=== PATIENT | male | born 1960 | race Caucasian/White ===

== ENCOUNTER → 2021-01-24 | Outpatient (CLI) | payer BC | LOC: WOUNDCARE 09:29 | PROVIDERS: ATTEND Surgery | DX: G60.9 Hereditary and idiopathic neuropathy, unspecified (principal); L97.522 Non-pressure chronic ulcer of other part of left foot with fat layer exposed | CPT/HCPCS: 11042; A6197; G0463 ==

== ENCOUNTER → 2021-01-24 | Outpatient (CLI) | payer BC ==
[2021-01-24 12:34] LABS: BASOPHILS # (AUTO) 0.1 10^3/uL (0.0-0.1); BASOPHILS % (AUTO) 1 % (0-10); EOSINOPHILS # (AUTO) 0.1 10^3/uL (0.0-0.3); EOSINOPHILS % (AUTO) 2 % (0-10); HEMATOCRIT 53 % (40-54); LYMPHOCYTES # (AUTO) 0.9 10^3/uL (1.0-4.0); LYMPHOCYTES % (AUTO) 13 % (12-44); MEAN CORPUSCULAR HEMOGLOBIN 29 pg (25-34); MEAN CORPUSCULAR HGB CONC 34 g/dL (32-36); MEAN CORPUSCULAR VOLUME 85 fL (80-99); MEAN PLATELET VOLUME 9.9 fL (9.0-12.2); MONOCYTES # (AUTO) 0.6 10^3/uL (0.0-1.0); MONOCYTES % (AUTO) 8 % (0-12); NEUTROPHILS # (AUTO) 5.1 10^3/uL (1.8-7.8); NEUTROPHILS % (AUTO) 76 % (42-75); PLATELET COUNT 241 10^3/uL (130-400); WHITE BLOOD COUNT 6.8 10^3/uL (4.3-11.0)
[2021-01-24 12:42] LABS: ALBUMIN 4.3 GM/DL (3.2-4.5); CHLORIDE 105 MMOL/L (98-107); POTASSIUM 4.3 MMOL/L (3.6-5.0); SODIUM 139 MMOL/L (135-145)
[2021-01-24 12:43] LABS: CALCIUM 8.7 MG/DL (8.5-10.1)
[2021-01-24 12:44] LABS: GLUCOSE 102 MG/DL (70-105)
[2021-01-24 12:46] LABS: BILIRUBIN,TOTAL 1.1 MG/DL (0.1-1.0); CARBON DIOXIDE 24 MMOL/L (21-32)
[2021-01-24 12:48] LABS: ALKALINE PHOSPHATASE 59 U/L (40-136); CREATININE SERUM 1.18 MG/DL (0.60-1.30); GFR ESTIMATED > 60
[2021-01-24 12:49] LABS: BUN/CREATININE RATIO 14
[2021-01-24 12:51] LABS: ALANINE AMINOTRANSFERASE 38 U/L (0-55)
--- NOTE | 2021-01-24 13:06 | Diagnostic Imaging Report ---
INDICATION: Chronic pressure ulcer. 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 Osteoarthritis is present at the 1st metatarsal-phalangeal joint. There is no evidence of acute fracture or malalignment. There is no evidence of periosteal reaction or bone destruction to indicate a site of osteomyelitis. Degenerative changes are also seen in the tarsal bones with prominent plantar calcaneal enthesophyte and plantar fascial calcification. IMPRESSION: Presumed chronic findings as described without evidence of acute bone destruction or periosteal reaction to indicate active osteomyelitis. Dictated by: Dictated on workstation # [id number]
[2021-01-24 13:52] LABS: ERYTHROCYTE SEDIMENTATION RATE 1 MM/HR (0-30)
== END ==
LOC: RAD 12:02
PROVIDERS: ATTEND Surgery
DX: L97.522 Non-pressure chronic ulcer of other part of left foot with fat layer exposed (principal); G60.9 Hereditary and idiopathic neuropathy, unspecified
CPT/HCPCS: 36415; 73630; 80053; 85025; 85652; 86141

== ENCOUNTER → 2021-02-08 | Outpatient (CLI) | payer BC | LOC: WOUNDCARE 08:10 | PROVIDERS: ATTEND Surgery | DX: G60.9 Hereditary and idiopathic neuropathy, unspecified (principal); L97.522 Non-pressure chronic ulcer of other part of left foot with fat layer exposed; I96 Gangrene, not elsewhere classified | CPT/HCPCS: 11042; G0463 ==

== ENCOUNTER → 2021-02-15 | Outpatient (CLI) | payer BC | LOC: WOUNDCARE 08:07 | PROVIDERS: ATTEND Surgery | DX: G60.9 Hereditary and idiopathic neuropathy, unspecified (principal); L97.522 Non-pressure chronic ulcer of other part of left foot with fat layer exposed | CPT/HCPCS: 99212 ==

== ENCOUNTER 2021-05-20 00:26 | Emergency (ER) | payer BC ==
[~2021-05-20] VITALS: Ht 200 cm; Wt 136.4 kg
[2021-05-20 01:31] LABS: BASOPHILS # (AUTO) 0.1 10^3/uL (0.0-0.1); BASOPHILS % (AUTO) 0 % (0-10); EOSINOPHILS % (AUTO) 0 % (0-10); HEMATOCRIT 53 % (40-54); HEMOGLOBIN 17.7 g/dL (13.3-17.7); LYMPHOCYTES % (AUTO) 16 % (12-44); MEAN CORPUSCULAR HEMOGLOBIN 29 pg (25-34); MEAN CORPUSCULAR HGB CONC 34 g/dL (32-36); MEAN CORPUSCULAR VOLUME 86 fL (80-99); MEAN PLATELET VOLUME 9.5 fL (9.0-12.2); MONOCYTES # (AUTO) 1.1 10^3/uL (0.0-1.0); MONOCYTES % (AUTO) 9 % (0-12); NEUTROPHILS # (AUTO) 9.1 10^3/uL (1.8-7.8); NEUTROPHILS % (AUTO) 73 % (42-75); PLATELET COUNT 314 10^3/uL (130-400); WHITE BLOOD COUNT 12.5 10^3/uL (4.3-11.0)
[2021-05-20 01:36] LABS: CHLORIDE 103 MMOL/L (98-107); POTASSIUM 3.8 MMOL/L (3.6-5.0); SODIUM 136 MMOL/L (135-145)
[2021-05-20 01:38] LABS: GLUCOSE 145 MG/DL (70-105)
[2021-05-20 01:39] LABS: CARBON DIOXIDE 21 MMOL/L (21-32)
[2021-05-20 01:42] LABS: CREATININE SERUM 1.38 MG/DL (0.60-1.30); GFR ESTIMATED 52
[2021-05-20 01:43] LABS: BUN/CREATININE RATIO 17
[2021-05-20 01:44] LABS: CREATINE KINASE 56 U/L (30-200)
[2021-05-20 01:50] LABS: CREATINE KINASE MB 3.1 NG/ML (<6.6)
--- NOTE | 2021-05-20 04:27 | ED Chest Pain ---
General Chief Complaint: Chest Pain Stated Complaint: CP,HEART RACING,SOB Nursing Triage Note: ASSISTED PT VIA ER W/C TO ROOM #7 W/CO CHEST DISCOMFORT AND DIZZINESS. PT REPORTS AT 2200 HE TOOK A 250MG THC GUMMY D/T RECENT INABILITY TO SLEEP. REPORTS AT 2300 HE AWOKE WITH MEDIAL CHEST DISCOMFORT RADIATING TO L ARM DESCRIBED "PRESSURE." ACCOMPANIED BY . Source: patient Exam Limitations: no limitations History of Present Illness Date Seen by Provider: May 20, 2021 Time Seen by Provider: 00:30 Initial Comments Patient is a 61-year-old male who presents to the emergency department tonight with a chief complaint of chest discomfort and dizziness. Patient states that he was unable to sleep tonight and took a THC gummy that he thought might help him sleep. He states that at 11:00 he woke up and had this chest discomfort that radiated from the right side of his chest across to the left arm. He felt like it was a "pressure". He complains of dizziness. He complains of a little nausea and shortness of breath. Patient states that he was not diaphoretic. He has no history of previous coronary artery disease, stress test or angiograms. He does have a history of hypertension and obstructive sleep apnea. Patient states that he has struggled quite a bit with sleep apnea. At the time of my evaluation he is quite comfortable rating his pain at a "2 or 3". He states that it at its worst it was a "8". The patient had never taken a THC gummy p rior to this evening. Patient is not diabetic. No recent illnesses such as fevers, chills cough or congestion or URI symptoms or Covid concerns. All other review of systems reviewed and negative except as stated above. Timing/Duration: 1 hour Severity/Quality: moderate Location: central (To right sided) Radiation: shoulders (Left shoulder) Activities at Onset: none Prior CP/Workup: no prior chest pain, no prior cardiac workup ASA po MANNEQUIN SANDER AND FINISHER: No NTG SL MANNEQUIN SANDER AND FINISHER: No Associated Symptoms: nausea/vomiting Allergies and Home Medications Patient Home Medication List Home Medication List Reviewed: Yes Review of Systems Review of Systems Constitutional: see HPI EENTM: No Symptoms Reported Respiratory: Shortness of Air Cardiovascular: Chest Pain Gastrointestinal: Nausea Genitourinary: No Symptoms Reported Skin: no symptoms reported Psychiatric/Neurological: Other (Dizziness) All Other Systems Reviewed Negative Unless Noted: Yes Physical Exam Vital Signs Vital Signs - First Documented 05/20/21 00:36 Temp 35.4 Pulse 97 Resp 18 B/P (MAP) 156/91 (112) Pulse Ox 96 O2 Delivery Room Air Capillary Refill : Less Than 3 Seconds Height, Weight, BMI Height: '" Weight: lbs. oz. kg; 34.00 BMI Method: General Appearance: No Apparent Distress, WD/WN HEENT: PERRL/EOMI Neck: Full Range of Motion, Normal Inspection Respiratory: Chest Non Tender, Lungs Clear, Normal Breath Sounds, No Accessory Muscle Use, No Respiratory Distress Cardiovascular: Regular Rate, Rhythm, Normal Peripheral Pulses Gastrointestinal: Non Tender, Soft Extremity: Normal Capillary Refill, Normal Inspection, Normal Range of Motion, Non Tender, No Calf Tenderness Neurologic/Psychiatric: Alert, Oriented x3, No Motor/Sensory Deficits, Normal Mood/Affect Skin: Normal Color, Warm/Dry Progress/Results/Core Measures Results/Orders Lab Results Laboratory Tests Test 05/20/21 00:45 05/20/21 03:52 Range/Units White Blood Count 12.5 H 4.3-11.0 10^3/uL Red Blood Count 6.12 H 4.30-5.52 10^6/uL Hemoglobin 17.7 13.3-17.7 g/dL Hematocrit 53 40-54 % Mean Corpuscular Volume 86 80-99 fL Mean Corpuscular Hemoglobin 29 25-34 pg Mean Corpuscular Hemoglobin Concent 34 32-36 g/dL Red Cell Distribution Width 13.8 10.0-14.5 % Platelet Count 314 130-400 10^3/uL Mean Platelet Volume 9.5 9.0-12.2 fL Immature Granulocyte % (Auto) 2 % Neutrophils (%) (Auto) 73 42-75 % Lymphocytes (%) (Auto) 16 12-44 % Monocytes (%) (Auto) 9 0-12 % Eosinophils (%) (Auto) 0 0-10 % Basophils (%) (Auto) 0 0-10 % Neutrophils # (Auto) 9.1 H 1.8-7.8 10^3/uL Lymphocytes # (Auto) 2.0 1.0-4.0 10^3/uL Monocytes # (Auto) 1.1 H 0.0-1.0 10^3/uL Eosinophils # (Auto) 0.0 0.0-0.3 10^3/uL Basophils # (Auto) 0.1 0.0-0.1 10^3/uL Immature Granulocyte # (Auto) 0.2 H 0.0-0.1 10^3/uL Sodium Level 136 135-145 MMOL/L Potassium Level 3.8 3.6-5.0 MMOL/L Chloride Level 103 98-107 MMOL/L Carbon Dioxide Level 21 21-32 MMOL/L Anion Gap 12 5-14 MMOL/L Blood Urea Nitrogen 23 H 7-18 MG/DL Creatinine 1.38 H 0.60-1.30 MG/DL Estimat Glomerular Filtration Rate 52 BUN/Creatinine Ratio 17 Glucose Level 145 H 70-105 MG/DL Calcium Level 9.0 8.5-10.1 MG/DL Total Creatine Kinase 56 30-200 U/L Creatine Kinase MB 3.1 <6.6 NG/ML Troponin I < 0.028 < 0.028 <0.028 NG/ML My Orders Orders - KRISTOPHER BANSAL MD Ed Iv/Invasive Line Start (05/20/21 01:27) Cbc With Automated Diff (05/20/21 01:27) Basic Metabolic Panel (05/20/21 01:27) Creatine Kinase (05/20/21 01:27) Creatine Kinase Mb (05/20/21:27) Troponin I (05/20/21 01:27) Ekg Tracing (05/20/21 01:27) Chest 1 View, Ap/Pa Only (05/20/21 01:27) Troponin I (05/20/21 03:03) Vital Signs/I&O 05/20/21 05/20/21 00:36 00:36 Temp 35.4 Pulse 97 Resp 18 B/P (MAP) 156/91 (112) Pulse Ox 96 O2 Delivery Room Air Room Air Blood Pressure Mean: 112 Progress Progress Note : Time: 04:35 Progress Note Patient is resting comfortably throughout his stay here in the ED. No ongoing complaints. 2 sets of cardiac markers were evaluated, both troponins were negative. Patient's vital signs have been stable. He is a little hypoxic with oxygen saturations running at about 90% occasionally dipping to 87 or 88. This is consistent with a history of obstructive sleep apnea. Patient will be discharged home to follow-up with his primary care provider. All questions have been sought and answered. Patient is stable for discharge. Initial ECG Impression Date: May 20, 2021 Initial ECG Impression Time: 00:40 Initial ECG Rate: 94 Initial ECG Rhythm: Normal Sinus Comment Right bundle branch block Diagnostic Imaging Diagonstic Imaging: Xray Plain Films/CT/US/NM/MRI: chest Comments Chest x-ray interpreted by me, no infiltrates or effusions are noted, normal mediastinal structures, normal bony thorax Departure Impression Primary Impression: Chest pain Qualified Codes: R07.9 - Chest pain, unspecified Disposition: HOME, SELF-CARE Condition: Stable Departure-Patient Inst. Decision time for Depature: 04:26 Referrals: CISCO PEREZ DO (PCP/Family) Primary Care Physician Patient Instructions: Chest Pain That Is Not Caused by the Heart (DC) Add. Discharge Instructions: Please follow-up with your primary care provider. Call today for a follow-up appointment next week. Take a baby aspirin daily. Return to the emergency department for any new, concerning or emergent complaints. KRISTOPHER BANSAL MD May 20, 2021 04:27
[2021-05-20 04:31] VITALS: BP 150/90
--- NOTE | 2021-05-20 07:10 | Diagnostic Imaging Report ---
INDICATION: chest pain. TECHNIQUE: Single view chest 1:48 AM. CORRELATION STUDY: None FINDINGS: The heart size, mediastinal configuration and pulmonary vascularity are within normal limits. Bibasilar opacities may be reflective of infiltrate versus atelectasis right slightly greater than left. IMPRESSION: 1. Bibasilar infiltrate versus atelectasis right greater than left. Followup imaging recommended. Dictated by: Dictated on workstation # [id number]
== END 2021-05-20 04:31 | disposition home or self-care (01) ==
LOC: EDUNIT# 00:26 → ER 00:30
DX: R07.9 Chest pain, unspecified (principal); I10 Essential (primary) hypertension
CPT/HCPCS: 36415; 71045; 80048; 82550; 82553; 84484; 85025; 93005

== ENCOUNTER 2021-07-16 17:18 | Inpatient (IN) | payer BC ==
[~2021-07-16] VITALS: Ht 205 cm; Wt 140.3 kg
[2021-07-16 18:12] LABS: BASOPHILS # (AUTO) 0.1 10^3/uL (0.0-0.1); BASOPHILS % (AUTO) 0 % (0-10); EOSINOPHILS % (AUTO) 0 % (0-10); HEMATOCRIT 49 % (40-54); HEMOGLOBIN 16.5 g/dL (13.3-17.7); LYMPHOCYTES # (AUTO) 0.6 10^3/uL (1.0-4.0); LYMPHOCYTES % (AUTO) 3 % (12-44); MEAN CORPUSCULAR HEMOGLOBIN 29 pg (25-34); MEAN CORPUSCULAR HGB CONC 34 g/dL (32-36); MEAN CORPUSCULAR VOLUME 87 fL (80-99); MONOCYTES # (AUTO) 0.9 10^3/uL (0.0-1.0); MONOCYTES % (AUTO) 4 % (0-12); NEUTROPHILS # (AUTO) 22.5 10^3/uL (1.8-7.8); NEUTROPHILS % (AUTO) 92 % (42-75); PLATELET COUNT 213 10^3/uL (130-400); WHITE BLOOD COUNT 24.4 10^3/uL (4.3-11.0)
[2021-07-16 18:24] LABS: ALBUMIN 4.3 GM/DL (3.2-4.5); INR 1.2 (0.8-1.4); POTASSIUM 4.2 MMOL/L (3.6-5.0); PROTHROMBIN TIME PATIENT 15.6 SEC (12.2-14.7)
[2021-07-16 18:26] LABS: CALCIUM 9.1 MG/DL (8.5-10.1)
[2021-07-16 18:27] LABS: TOTAL PROTEIN 6.9 GM/DL (6.4-8.2)
[2021-07-16 18:29] LABS: BILIRUBIN,TOTAL 2.9 MG/DL (0.1-1.0)
[2021-07-16 18:30] LABS: CREATININE SERUM 1.48 MG/DL (0.60-1.30)
[2021-07-16] MEDS ORDERED: NS IV 1000 ML 1,000 ML IV SCH ×3 (18:30→20:30)
[2021-07-16] MEDS ORDERED: ASPIRIN 81 MG CHEW (CHILDREN'S ASA) PO ONE (18:30)
[2021-07-16 18:33] LABS: MAGNESIUM 1.4 MG/DL (1.6-2.4)
[2021-07-16 18:43] LABS: MONOCYTES % (MANUAL) 4 %; NEUTROPHILS % (MANUAL) 96 %; RBC MORPH NORMAL
--- NOTE | 2021-07-16 18:52 | Diagnostic Imaging Report ---
INDICATION: Chest pain. TECHNIQUE: Single view chest 6:25 PM. CORRELATION STUDY: 05/20/2021. FINDINGS: Heart size is mildly enlarged. Prominent appearance about the central pulmonary arteries. Minimal areas of atelectasis suggested about the lung bases. No definitive consolidating infiltrate. IMPRESSION: Cardiac enlargement without failure, stable. Likely minimal basilar areas of atelectasis. No infiltrate. Dictated by: Dictated on workstation # [id number]
[2021-07-16] MEDS ORDERED: LABETALOL HCL 20 MG/4 ML VIAL IV ONE (19:00)
--- NOTE | 2021-07-16 19:09 | ED Chest Pain ---
General Chief Complaint: Trauma-Non Activation Stated Complaint: CP,YOUNG,FEVER Nursing Triage Note: ARRIVED VIA AMB TO ROOM 05. STATES HE HAS A HEADACHE, FEVER, CHEST PAIN THIS AM, AND BLACKED OUT DRIVING HIS SPRAYER AND HIT HIS SHEAD AT 11AM TODAY. DENIES PAIN FROM THIS INCIDENT. (BERLIN IVORY) History of Present Illness Date Seen by Provider: Jul 16, 2021 Time Seen by Provider: 18:05 Initial Comments 61-year-old male presents for syncopal episodes that have been occurring over the last 2 years. He reports 3 episodes since 9:00 this morning, one at 11:00 am while driving a tractor/sprayer and running into the barn. No head injury and he usually awakens after hearing beeping on his tractor. He did not have any head injuries. He also began having upper back pain that started at midnight. He has not been seen by a senior software qa analyst and has a history of hypertension but no history of CAD. He is not diabetic. He denies any chest pain presently but had some about 0900 today, nausea or diaphoresis. No history of smoking. He takes Amlodipine/Benazepril 5/40 mg daily for HTN. No known COVID exposure, he received his first vaccine 2 weeks ago. Will get his second vaccine in a week. He has been prescribed CPAP but uses it very rarely. He does not sleep well and has thought the syncopal episodes are related to being tired. He was seen in this ED in April for Chest pain and had a negative ED work up. Timing/Duration: 24 hours Severity/Quality: mild Location: back Radiation: no radiation Prior CP/Workup: non-cardiac ASA po CONSERVATION ENGINEER: No NTG SL CONSERVATION ENGINEER: No Associated Symptoms: No nausea/vomiting, No shortness of breath; syncope; No weakness (BERLIN IVORY) Allergies and Home Medications Allergies Coded Allergies: No Known Drug Allergies (Unverified , 07/16/21) Home Medications Amlodipine Besylate/Benazepril 1 Each Capsule, 1 EACH PO DAILY, (Reported) Last Action: Reviewed Duloxetine HCl 60 Mg Capsule., 60 MG PO DAILY, (Reported) Last Action: Reviewed Meloxicam 15 Mg Tablet, 15 MG PO DAILY, (Reported) Last Action: Reviewed Omeprazole 40 Mg Capsule., 40 MG PO DAILY, (Reported) Last Action: Reviewed Tramadol HCl 50 Mg Tablet, 50 MG PO Q6H PRN for PAIN-MODERATE (5-7), (Reported) Last Action: Reviewed Patient Home Medication List Home Medication List Reviewed: Yes (BERLIN IVORY) Review of Systems Review of Systems Constitutional: no symptoms reported, see HPI Cardiovascular: See HPI; Denies Chest Pain (None presently.), Denies Edema; Lightheadedness, Syncope Gastrointestinal: No Symptoms Reported, See HPI; Denies Nausea (BERLIN IVORY) All Other Systems Reviewed Negative Unless Noted: Yes (BERLIN IVORY) Past Cbmxxfs-Qikmqt-Njygga Hx Patient Social History Tobacco Use?: No Use of E-Cig and/or Vaping dev: No Substance use?: No (BERLIN IVORY) Immunizations Up To Date First/Initial COVID19 Vaccinat: 2 WEEKS AGO (BERLIN IVORY) Family Medical History Reviewed Nursing Family Hx (BERLIN IVORY) Physical Exam Vital Signs Vital Signs - First Documented 07/16/21 17:45 Temp 37.6 Pulse 120 Resp 16 B/P (MAP) 150/121 (131) Pulse Ox 95 O2 Delivery Room Air (DAPHNE TEJEDA MD) Vital Signs Capillary Refill : Less Than 3 Seconds (BERLIN IVORY) Height, Weight, BMI Height: '" Weight: lbs. oz. kg; 32.00 BMI Method: General Appearance: No Apparent Distress, WD/WN HEENT: PERRL/EOMI, TMs Normal, Normal ENT Inspection, Pharynx Normal Neck: Full Range of Motion, Normal Inspection, Non Tender, Supple Respiratory: Chest Non Tender, Lungs Clear, Normal Breath Sounds Cardiovascular: Regular Rate, Rhythm, No Edema, No JVD, No Murmur, Tachycardia Gastrointestinal: Normal Bowel Sounds, Non Tender, Soft Extremity: Normal Capillary Refill, Normal Inspection, Normal Range of Motion, No Pedal Edema Neurologic/Psychiatric: Alert, Oriented x3, No Motor/Sensory Deficits, Normal Mood/Affect, indirect fire infantryman II-XII Norm as Tested Skin: Normal Color, Warm/Dry; No Cyanosis, No Diaphoresis (BERLIN IVORY) Progress/Results/Core Measures Results/Orders Lab Results Laboratory Tests Test 07/16/21 18:00 07/16/21 19:55 Range/Units White Blood Count 24.4 H 4.3-11.0 10^3/uL Red Blood Count 5.62 H 4.30-5.52 10^6/uL Hemoglobin 16.5 13.3-17.7 g/dL Hematocrit 49 40-54 % Mean Corpuscular Volume 87 80-99 fL Mean Corpuscular Hemoglobin 29 25-34 pg Mean Corpuscular Hemoglobin Concent 34 32-36 g/dL Red Cell Distribution Width 14.1 10.0-14.5 % Platelet Count 213 130-400 10^3/uL Mean Platelet Volume 10.0 9.0-12.2 fL Immature Granulocyte % (Auto) 2 % Neutrophils (%) (Auto) 92 H 42-75 % Lymphocytes (%) (Auto) 3 L 12-44 % Monocytes (%) (Auto) 4 0-12 % Eosinophils (%) (Auto) 0 0-10 % Basophils (%) (Auto) 0 0-10 % Neutrophils # (Auto) 22.5 H 1.8-7.8 10^3/uL Lymphocytes # (Auto) 0.6 L 1.0-4.0 10^3/uL Monocytes # (Auto) 0.9 0.0-1.0 10^3/uL Eosinophils # (Auto) 0.0 0.0-0.3 10^3/uL Basophils # (Auto) 0.1 0.0-0.1 10^3/uL Immature Granulocyte # (Auto) 0.4 H 0.0-0.1 10^3/uL Neutrophils % (Manual) 96 % Monocytes % (Manual) 4 % Blood Morphology Comment NORMAL Prothrombin Time 15.6 H 12.2-14.7 SEC INR Comment 1.2 0.8-1.4 Activated Partial Thromboplast Time 34 24-35 SEC Sodium Level 133 L 135-145 MMOL/L Potassium Level 4.2 3.6-5.0 MMOL/L Chloride Level 98 98-107 MMOL/L Carbon Dioxide Level 25 21-32 MMOL/L Anion Gap 10 5-14 MMOL/L Blood Urea Nitrogen 18 7-18 MG/DL Creatinine 1.48 H 0.60-1.30 MG/DL Estimat Glomerular Filtration Rate 48 BUN/Creatinine Ratio 12 Glucose Level 111 H 70-105 MG/DL Calcium Level 9.1 8.5-10.1 MG/DL Corrected Calcium 8.9 8.5-10.1 MG/DL Magnesium Level 1.4 L 1.6-2.4 MG/DL Total Bilirubin 2.9 H 0.1-1.0 MG/DL Aspartate Amino Transf (AST/SGOT) 23 5-34 U/L Alanine Aminotransferase (ALT/SGPT) 25 0-55 U/L Alkaline Phosphatase 54 40-136 U/L Myoglobin 208.6 H 10.0-92.0 NG/ML Troponin I 0.032 H <0.028 NG/ML Total Protein 6.9 6.4-8.2 GM/DL Albumin 4.3 3.2-4.5 GM/DL TSH Kay Testing 2.45 0.35-4.94 UIU/ML Influenza Type A (RT-PCR) Not Detected Not Detecte Influenza Type B (RT-PCR) Not Detected Not Detecte SARS-CoV-2 RNA (RT-PCR) Not Detected Not Detecte Urine Color YELLOW Urine Clarity CLEAR Urine pH 8.0 5-9 Urine Specific [place] 1.015 L 1.016-1.022 Urine Protein 2+ H NEGATIVE Urine Glucose (UA) NEGATIVE NEGATIVE Urine Ketones 2+ H NEGATIVE Urine Nitrite NEGATIVE NEGATIVE Urine Bilirubin 1+ H NEGATIVE Urine Urobilinogen 2.0 < = 1.0 MG/DL Urine Leukocyte Esterase NEGATIVE NEGATIVE Urine RBC (Auto) TRACE-I NEGATIVE Urine RBC NONE /HPF Urine WBC 5-10 H /HPF Urine Squamous Epithelial Cells 0-2 /HPF Urine Renal Epithelial Cells NONE /HPF Urine Crystals NONE /LPF Urine Bacteria NEGATIVE /HPF Urine Casts NONE /LPF Urine Mucus NEGATIVE /LPF Urine Culture Indicated NO (DAPHNE TEJEDA MD) Medications Given in ED Current Medications Medications Dose Ordered Sig/Odilon Route Start Time Stop Time Status Last Admin Dose Admin Metoprolol Succinate 25 mg ONCE ONCE PO 07/16/21 20:00 07/16/21 20:28 DC 07/16/21 20:42 25 MG (DAPHNE TEJEDA MD) Vital Signs/I&O 07/16/21 17:45 Temp 37.6 Pulse 120 Resp 16 B/P (MAP) 150/121 (131) Pulse Ox 95 O2 Delivery Room Air (DAPHNE TEJEDA MD) Blood Pressure Mean: 131 Progress Progress Note : Time: 18:05 Progress Note Patient seen and evaluated, will obtain labs, EKG, chest x-ray. Will give aspirin 324 mg orally and start normal saline 1 L per IV. Labetolol 20 mg IV for Tachy and B/P. Occ PVC on telemetry, not noted on EKG. 1929 Dr. Fajardo notified of elevated troponin. White count elevated as well with continued tachycardia 100-110, will hydrate aggressively. Will give Nitro 0.4 mg SL 1944 B/P 130/60, Nitro had not been given, will hold at this time. 1999 Dr. Fajardo in ED to see patient. Would like CT angio Chest with patient history and symptoms. Toprol 25 mg Orally. [address] Cortés, agreeable to admission. Patient denies chest pain at this time. 2099 CT angio neg. no complaints at this time. BP 107/82, HR 90-110. Awaiting transfer to Cardiac step down (BERLIN IOVRY) Initial ECG Impression Date: Jul 16, 2021 Initial ECG Impression Time: 18:04 Initial ECG Rate: 119 Initial ECG Rhythm: S.Tach Initial ECG Intervals RI 164, QRSD 164, QT 339, QTc 478. [place] P 62, QRS 6, T- 21. Initial ECG Comparisson: Changed (BERLIN IVORY) Diagnostic Imaging Diagonstic Imaging: Xray Plain Films/CT/US/NM/MRI: chest Comments NAME: BERRY MARISCAL [facility] REC#: [id number] PT STATUS: REG ER : 1960 PHYSICIAN: BERLIN IVORY ADMIT DATE: 07/16/21/ER Draft Date of Exam:07/16/21 CHEST 1 VIEW, AP/PA ONLY INDICATION: Chest pain. TECHNIQUE: Single view chest 6:25 PM. CORRELATION STUDY: 05/20/2021. FINDINGS: Heart size is mildly enlarged. Prominent appearance about the central pulmonary arteries. Minimal areas of atelectasis suggested about the lung bases. No definitive consolidating infiltrate. IMPRESSION: Cardiac enlargement without failure, stable. Likely minimal basilar areas of atelectasis. No infiltrate. Dictated on workstation # [id number] Dict: 07/[id number] Trans: 07/16/[id number] CANDY [id number] Interpreted by: ANGLE DIOP DO Electronically signed by: Reviewed: Reviewed by Me Diagonstic Imaging: CT Plain Films/CT/US/NM/MRI: chest Comments NAME: BERRY MARISCAL [facility] REC#: [id number] PT STATUS: ADM IN : 1960 PHYSICIAN: BERLIN IVORY ADMIT DATE: 07/16/21/[facility] Draft Date of Exam:07/16/21 CT ANGIO CHEST W PROCEDURE: CT angiography of the chest with contrast. TECHNIQUE: Multiple contiguous axial images were obtained through the chest after uneventful bolus administration of intravenous contrast. 3D reconstructed CTA MIP acquisitions were also performed. Auto Exposure Controls were utilized during the CT exam to meet ALARA standards for radiation dose reduction. INDICATION: Chest pain. CORRELATION: Chest radiograph, 07/16/2021. FINDINGS: Heart size is normal. No pericardial effusion. No disproportionate right heart strain. Motion artifacts present; however, the thoracic aorta appears unremarkable and without evidence for dissection or aneurysm. There is no large central pulmonary embolus present. There is incomplete assessment of the peripheral vessels owing to phase of contrast enhancement. There are some areas of slight asymmetric lower density noted. Definitive filling defect, however, cannot be confirmed. Small hiatal hernia. The lung cooney are clear of infiltrate. Small subpleural nodule of anterior right mid lung field, 7 mm in size. No effusion or pneumothorax. Mild fatty infiltration of the liver. Spleen does appear to be mildly enlarged, incompletely visualized. Mildly prominent bridging osteophytes of the thoracic spine. IMPRESSION: 1. No large central pulmonary embolism. Smaller peripheral emboli would go undetected on this study given contrast enhancement and some attenuation asymmetry in the pulmonary arteries. 2. Cardiac enlargement without disproportionate right heart strain. 3. No consolidating pulmonary infiltrate. Dictated on workstation # [id number] Dict: [id number] Trans: 07/16/212056 CANDY [id number] Interpreted by: ANGLE DIOP DO Electronically signed by Reviewed: Reviewed by Me (BERLIN IVORY) Departure Impression Primary Impression: Non-STEMI (non-ST elevated myocardial infarction) Additional Impressions: Syncopal episodes Qualified Codes: R55 - Syncope and collapse Tachycardia Hypertension Qualified Codes: I10 - Essential (primary) hypertension Sleep apnea Qualified Codes: G47.30 - Sleep apnea, unspecified Disposition: ADMITTED INPATIENT Condition: Stable Admissions Decision to Admit Reason: Admit from ER (General) Decision to Admit/Date: Jul 16, 2021 Time/Decision to Admit Time: 19:30 (BERLIN IVORY) Departure-Patient Inst. Referrals: CISCO PEREZ DO (PCP/Family) Primary Care Physician ATTENDING PHYSICIAN NOTE: I was physically present as attending physician in the emergency department during the care of this patient, but I was not directly involved in the decision making or delivery of care for this patient. (DAPHNE TEJEDA MD) BERLIN IVORY Jul 16, 2021 19:09 DAPHNE TEJEDA MD Jul 17, 2021 07:39
[2021-07-16] MEDS ORDERED: NITROGLYCERIN 0.4 MG SL TABS BTL 25'S SL PRN ×2 (19:30→22:00)
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
[2021-07-16] MEDS ORDERED: ENOXAPARIN 100 MG/1 ML (LOVENOX) SYR SC SCH (20:15)
[2021-07-16] MEDS ORDERED: IOHEXOL 350 MG/ML 100 ML (OMNIPAQUE 350) VIAL IV ONE (20:30)
[2021-07-16] MEDS ORDERED: HOLD METFORMIN - RECEIVED CONTRAST 20 ML VIAL IV SCH (20:30)
[2021-07-16] MEDS ORDERED: CATHETER FLUSH 10 ML SYR IV PRN (20:30)
[2021-07-16 20:32] LABS: BILIRUBIN,URINE 1+ (NEGATIVE); CLARITY,URINE CLEAR; COLOR,URINE YELLOW; GLUCOSE, URINE (UA) NEGATIVE (NEGATIVE); KETONES,URINE 2+ (NEGATIVE); LEUKOCYTE ESTERASE ,URINE NEGATIVE (NEGATIVE); NITRITE,URINE NEGATIVE (NEGATIVE); PROTEIN,URINE 2+ (NEGATIVE)
[2021-07-16 20:39] LABS: BACTERIA,URINE NEGATIVE /HPF; SQUAMOUS EPITHELIAL CELL,UR 0-2 /HPF
[2021-07-16] MEDS: NS IV 1000 ML 1,000 ML IV SCH ×2 (20:41→22:07)
--- NOTE | 2021-07-16 20:58 | Diagnostic Imaging Report ---
PROCEDURE: CT angiography of the chest with contrast. TECHNIQUE: Multiple contiguous axial images were obtained through the chest after uneventful bolus administration of intravenous contrast. 3D reconstructed CTA MIP acquisitions were also performed. Auto Exposure Controls were utilized during the CT exam to meet ALARA standards for radiation dose reduction. INDICATION: Chest pain. CORRELATION: Chest radiograph, 07/16/2021. FINDINGS: Heart size is normal. No pericardial effusion. No disproportionate right heart strain. Motion artifacts present; however, the thoracic aorta appears unremarkable and without evidence for dissection or aneurysm. There is no large central pulmonary embolus present. There is incomplete assessment of the peripheral vessels owing to phase of contrast enhancement. There are some areas of slight asymmetric lower density noted. Definitive filling defect, however, cannot be confirmed. Small hiatal hernia. The lung cooney are clear of infiltrate. Small subpleural nodule of anterior right mid lung field, 7 mm in size. No effusion or pneumothorax. Mild fatty infiltration of the liver. Spleen does appear to be mildly enlarged, incompletely visualized. Mildly prominent bridging osteophytes of the thoracic spine. IMPRESSION: 1. No large central pulmonary embolism. Smaller peripheral emboli would go undetected on this study given contrast enhancement and some attenuation asymmetry in the pulmonary arteries. 2. Cardiac enlargement without disproportionate right heart strain. 3. No consolidating pulmonary infiltrate. Dictated by: Dictated on workstation # [id number]
[2021-07-16] MEDS: ENOXAPARIN 80 MG/0.8 ML (LOVENOX) SYR SC SCH (21:15)
[2021-07-16 21:25] VITALS: BP 107/82
[2021-07-16] MEDS ORDERED: ONDANSETRON 4 MG/2 ML (SDV) Z0FRAN IVP PRN (22:00)
[2021-07-16] MEDS: ACETAMINOPHEN 325 MG TABLET PO PRN (22:09)
[2021-07-16] MEDS ORDERED: AMLO-168 PO (23:07)
[2021-07-16] MEDS ORDERED: MELO15TA39 PO (23:07)
[2021-07-16] MEDS ORDERED: OMEP40CA6 PO (23:07)
[2021-07-16] MEDS ORDERED: TRAM50TA3 PO (23:07)
[2021-07-16] MEDS ORDERED: DULO60CA59 PO (23:07)
[2021-07-17 03:31] LABS: BASOPHILS # (AUTO) 0.1 10^3/uL (0.0-0.1); BASOPHILS % (AUTO) 0 % (0-10); EOSINOPHILS % (AUTO) 0 % (0-10); HEMATOCRIT 45 % (40-54); HEMOGLOBIN 14.9 g/dL (13.3-17.7); LYMPHOCYTES # (AUTO) 0.5 10^3/uL (1.0-4.0); LYMPHOCYTES % (AUTO) 2 % (12-44); MEAN CORPUSCULAR HEMOGLOBIN 29 pg (25-34); MEAN CORPUSCULAR HGB CONC 33 g/dL (32-36); MEAN CORPUSCULAR VOLUME 88 fL (80-99); MEAN PLATELET VOLUME 9.9 fL (9.0-12.2); MONOCYTES # (AUTO) 0.8 10^3/uL (0.0-1.0); MONOCYTES % (AUTO) 4 % (0-12); NEUTROPHILS # (AUTO) 18.2 10^3/uL (1.8-7.8); NEUTROPHILS % (AUTO) 90 % (42-75); PLATELET COUNT 155 10^3/uL (130-400); WHITE BLOOD COUNT 20.2 10^3/uL (4.3-11.0)
[2021-07-17 03:48] LABS: ALBUMIN 3.6 GM/DL (3.2-4.5); CHLORIDE 101 MMOL/L (98-107); POTASSIUM 3.7 MMOL/L (3.6-5.0); SODIUM 133 MMOL/L (135-145)
[2021-07-17 03:49] LABS: CALCIUM 8.2 MG/DL (8.5-10.1)
[2021-07-17 03:50] LABS: GLUCOSE 122 MG/DL (70-105); TRIGLYCERIDES 55 MG/DL (<150); VLDL CHOLESTEROL 11 MG/DL (5-40)
[2021-07-17 03:51] LABS: CARBON DIOXIDE 21 MMOL/L (21-32)
[2021-07-17 03:52] LABS: BILIRUBIN,TOTAL 2.6 MG/DL (0.1-1.0)
[2021-07-17 03:54] LABS: ALKALINE PHOSPHATASE 45 U/L (40-136); CREATININE SERUM 1.35 MG/DL (0.60-1.30); GFR ESTIMATED 54
[2021-07-17 03:55] LABS: BUN/CREATININE RATIO 14; CHOLESTEROL 107 MG/DL (< 200)
[2021-07-17 03:56] LABS: HDL CHOLESTEROL 46 MG/DL (40-60)
[2021-07-17 03:57] LABS: ALANINE AMINOTRANSFERASE 21 U/L (0-55)
[2021-07-17] MEDS: NS IV 1000 ML 1,000 ML IV SCH ×5 (05:01→23:32)
[2021-07-17] MEDS: ACETAMINOPHEN 325 MG TABLET PO PRN (05:02)
[2021-07-17] MEDS: ASPIRIN E.C. 81 MG (ECOTRIN) TAB PO SCH (08:40)
[2021-07-17] MEDS: PANTOPRAZOLE 40 MG (PROTONIX) TAB PO SCH (09:00)
[2021-07-17] MEDS: DULoxetine 30 MG (CYMBALTA) CAP PO SCH (09:00)
[2021-07-17] MEDS ORDERED: NON-FORMULARY MEDICATION 1 EA EA (Omeprazole 40 MG) PO SCH (09:00)
[2021-07-17] MEDS ORDERED: NON-FORMULARY MEDICATION 1 EA EA (Duloxetine HCl 60 MG) PO SCH (09:00)
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
[2021-07-17] MEDS: ENOXAPARIN 80 MG/0.8 ML (LOVENOX) SYR SC SCH (09:28)
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
--- NOTE | 2021-07-17 09:32 | Conscious Sedation/ASA ---
Conscious Sedation Pre-Proced Time 09:32 ASA Score 3 For ASA 3 and 4: Consider anesthesia and medical clearance. Also, for patients with a history of failed moderate sedation consider anesthesia. Airway Lungs Heart ASA score ASA 1: a normal healthy patient ASA 2: a patient with a mild systemic disease (mid diabetes, controlled hypertension, obesity x ASA 3: a patient with a severe systemic disease that limits activity (angina, COPD, prior Myocardial infarction) ASA 4: a patient with an incapacitating disease that is a constant threat to life (CHF, renal failure) ASA 5: a moribund patient not expected to survive 24 hrs. (ruptured aneurysm) ASA 6: a declared brain- patient whose organs are being harvested. For emergent operations, add the letter E after the classification Mallampati Classification Grade 3 Sedation Plan Analgesia, Amnesia, Plan communicated to team members, Discussed options with patient/fam, Discussed risks with patient/fam The patient is an appropriate candidate to undergo the planned procedure, sedation, and anesthesia. The patient immediately re-assessed prior to indication. MEMO CABRAL MD Jul 17, 2021 09:32
[2021-07-17] MEDS ORDERED: VERAPAMIL 5 MG/2 ML (CALAN) VIAL IV ONE (09:58)
[2021-07-17] MEDS ORDERED: HEParin 1000 UNIT/ML (10ML VIAL) FOR BOLUS ONE (09:58)
[2021-07-17] MEDS ORDERED: MIDAZOLAM 5 MG/5 ML (VERSED) VIAL ONE (09:58)
[2021-07-17] MEDS ORDERED: fentaNYL INJ 100 MCG/2 ML AMP ONE ×2 (09:58→15:01)
[2021-07-17] MEDS ORDERED: HEParin (CATH LAB) 2,000 ML IV ONE (09:59)
[2021-07-17] MEDS ORDERED: LIDOCAINE 1% INJ 20 ML 20 ML VIAL ONE (09:59)
[2021-07-17] MEDS ORDERED: NITRO DRIP 25000 MCG/D5W 0 ML IV ONE (09:59)
[2021-07-17] MEDS ORDERED: NS IV 1000 ML 1,000 ML ONE (10:26)
[2021-07-17] MEDS ORDERED: PATIENT MAY USE OWN MEDS, ALL PO SCH (10:45)
--- NOTE | 2021-07-17 10:46 | Cardiac Cath Report ---
Cardiac Cath Report Physician (s)/Nat Instructor (s) Physician MEMO CABRAL MD Pre-Procedure Diagnosis Pre-Procedure Diagnosis: Coronary artery disease Post-Procedure Note Procedure Start Date: Jul 17, 2021 Name of Procedure: Left heart catheterization Findings/Procedure Note PROCEDURE NOTE: 61-year-old gentleman with history of hypertension, sleep apnea, had a syncopal episode, had mild elevation in troponin, scheduled for cardiac catheterization possible PTCA. After explaining the procedure to the patient, all pros and cons were explained, all questions were answered. The patient signed the consent and then he was placed on the cardiac catheterization laboratory. Groin was prepped SL fashion local anesthesia was used. Sheath placed in the right femoral artery. Basilio right and left catheter were used to access the coronary system. Basilio right was prolapsed to the left ventricular cavity, pressure was measured no left ventriculogram was done. At the end of the procedure the sheath was removed. Closure device was deployed FINDINGS: Hemodynamics LV 117/14, end-diastolic pressure 14 Aorta 113/71 mean of 85 ANATOMY: Left Main is free of obstructive disease Left Anterior Descending is free of obstructive disease Left Circumflex is free of obstructive disease Right Coronary Artery has mild tortuosity proximally with mild disease nonobstructive disease LV Gram was not done, pressure was measured CONCLUSION: 1. Mild coronary artery disease nonobstructive disease 2. Normal left ventricular end-diastolic pressure DISCUSSION AND RECOMMENDATION: Continue with beta-blockers, elevated troponin is probably secondary to type II myocardial infarction secondary to malignant hypertension Anesthesia Type: Conscious Sedation Estimated blood loss (mL): 15 ml Contrast Amount: 31 ml Total Radiation Dose: 549 mGy Post-Procedure Diagnosis Post-operative diagnosis: Type II myocardial infarction Syncope Sinus tachycardia Malignant hypertension MEMO CABRAL MD Jul 17, 2021 10:46
[2021-07-17] MEDS ORDERED: MTP25TSR PO (10:47)
--- NOTE | 2021-07-17 10:47 | Discharge Inst-Post CATH ---
Discharge Inst-CATH/EP Problems Reviewed?: Yes Post Cardiac Cath/EP D/C Inst Follow Up/Plan Appointment with Dr. Fajardo's office next week <b>CARDIAC CATH/EP PROCEDURE DISCHARGE INSTRUCTIONS</b> ACTIVITY * Go Home directly and rest. * Limit activity of the leg (or wrist if it was used) for 7 days including aerobics, swimming, jogging, bicycling, etc. * Restrict stair-climbing for 7 days if possible, if not, climb up with your non-cath leg, then bring together on the same step. * Avoid lifting, pushing, pulling or excessive movement of the affected extremity for 7 days. * Customary sexual activity may be resumed after 2 days-use caution not to use a position that strains or causes pain to the affected extremity. * No driving for 24 hours. * NO SMOKING. * Avoid straining for bowel movements for 7 days. * Gentle walking on level ground is allowed. * Returning to work will depend on the type of procedure and the results. Your doctor will discuss this with you. CALL YOUR DOCTOR FOR ANY OF THE FOLLOWING: *If bleeding from the puncture site occurs- Apply gentle pressure to site with clean cloth and call your doctor or EMS. * If a knot or lump forms under the skin, increases in size, or causes pain. * If bruising appears to be worsening or moving further down your leg instead of disappearing. * Temperature above 101 F. CARE OF YOUR GROIN INCISION; * Bruising or purple discoloration of the skin near the puncture site is common. * You may shower only, no bathtub bathing for 5 days. Be careful to avoid slipping as your leg may feel stiff. * If a closure device was used on your femoral artery, please see the attached guide regarding care of the device and your leg. * Leave dressing on FOR 24 hours. CARE OF YOUR WRIST INCISION; * Bruising or purple discoloration of the skin near the puncture site is common. * You may shower. * DO NOT submerge wrist. * Leave dressing on FOR 24 hours. MEMO FAJARDO MD Jul 17, 2021 10:47
[2021-07-17] MEDS: cefTRIAXone 1,000 MG in WATER (STERILE) FOR INJECTION 10 ML IV SCH (12:34)
[2021-07-17] MEDS ORDERED: fentaNYL INJ 100 MCG/2 ML AMP IVP PRN (15:00)
[2021-07-17] MEDS ORDERED: HYDROcodone/APAP 5 MG/325 MG (LORTAB) TAB PO PRN (15:00)
[2021-07-18 04:00] LABS: HEMATOCRIT 44 % (40-54); HEMOGLOBIN 14.7 g/dL (13.3-17.7); MEAN CORPUSCULAR HEMOGLOBIN 29 pg (25-34); MEAN CORPUSCULAR HGB CONC 33 g/dL (32-36); MEAN CORPUSCULAR VOLUME 88 fL (80-99); MEAN PLATELET VOLUME 10.1 fL (9.0-12.2); PLATELET COUNT 144 10^3/uL (130-400); WHITE BLOOD COUNT 15.7 10^3/uL (4.3-11.0)
[2021-07-18 04:18] LABS: POTASSIUM 3.7 MMOL/L (3.6-5.0)
[2021-07-18 04:19] LABS: CALCIUM 8.6 MG/DL (8.5-10.1)
[2021-07-18 04:23] LABS: CREATININE SERUM 1.02 MG/DL (0.60-1.30)
[2021-07-18] MEDS ORDERED: FUROSEMIDE 40 MG/4 ML INJ (LASIX) IVP ONE ×2 (08:45→17:15)
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
[2021-07-18] MEDS: DULoxetine 30 MG (CYMBALTA) CAP PO SCH (09:11)
[2021-07-18] MEDS: ASPIRIN E.C. 81 MG (ECOTRIN) TAB PO SCH (09:11)
[2021-07-18] MEDS: PANTOPRAZOLE 40 MG (PROTONIX) TAB PO SCH (09:11)
[2021-07-18] MEDS ORDERED: TEST200V21 IM (10:38)
[2021-07-18] MEDS ORDERED: MULT-1136 PO (10:38)
--- NOTE | 2021-07-18 10:41 | Progress Note ---
SURESH PENA MED STUDENT 07/18/21 1041: Subjective Date Seen by a Provider: Jul 18, 2021 Time Seen by a Provider: 08:00 Subjective/Events-last exam Patient awake and alert in room surrounded by family. Patient denies chest pain, SOB, nausea, headache, and chills. Reports feeling 100% improved since admission. Denies further needs at this time. Review of Systems General: No Chills, No Night Sweats HEENT: No Head Aches, No Visual Changes Pulmonary: No Dyspnea, No Cough Cardiovascular: No: Chest Pain, Palpitations Gastrointestinal: No: Nausea, Vomiting, Abdominal Pain Genitourinary: No Dysuria, No Frequency Musculoskeletal: No: neck pain, back pain Neurological: No: Weakness, Numbness Focused Exam Lactate Level 07/16/21 20:12: Lactic Acid Level 1.21 Objective Exam Last Set of Vital Signs Vital Signs Date Time Temp Pulse Resp B/P (MAP) Pulse Ox O2 Delivery O2 Flow Rate FiO2 07/18/21 07:35 36.6 84 19 122/79 (93) 97 Nasal Cannula 2.00 Capillary Refill : Less Than 3 Seconds I&O Intake and Output 07/18/21 00:00 Intake Total 3530 ml Output Total 1650 ml Balance 1880 ml Intake Oral 1530 ml IV Total 2000 ml Output Urine Total 1650 ml General: Alert, Oriented X3, Cooperative, No Acute Distress HEENT: Atraumatic, PERRLA, EOMI, Mucous Memb Moist/[place] Neck: Supple, No LAD Lungs: Clear to Auscultation, Normal Air Movement Heart: Regular Rate, No Murmurs Abdomen: Normal Bowel Sounds, Soft, No Tenderness Extremities: No Clubbing, No Cyanosis, Normal Pulses, Other (2+pitting edema BLE) Skin: No Rashes, No Breakdown, Other (Right groin access site dressing C/D/I) Neuro: Normal Speech, Strength at 5/5 X4 Ext, Normal Tone, Sensation Intact, Cranial Nerves 3-12 NL Psych/Mental Status: Mental Status NL, Mood NL Results Lab Laboratory Tests 07/18/21 03:00: White Blood Count 15.7H, Red Blood Count 5.03, Hemoglobin 14.7, Hematocrit 44, Mean Corpuscular Volume 88, Mean Corpuscular Hemoglobin 29, Mean Corpuscular Hemoglobin Concent 33, Red Cell Distribution Width 14.3, Platelet Count 144, Mean Platelet Volume 10.1, Sodium Level 134L, Potassium Level 3.7, Chloride Level 104, Carbon Dioxide Level 21, Anion Gap 9, Blood Urea Nitrogen 15, Creatinine 1.02, Estimat Glomerular Filtration Rate 74, BUN/Creatinine Ratio 15, Glucose Level 108H, Calcium Level 8.6 Microbiology 07/16/21 Blood Culture - Preliminary, Resulted No growth Assessment/Plan Assessment/Plan Assess & Plan/Chief Complaint Syncope -maintain telemetry Chest pain -SL nitro PRN -continue to monitor NSTEMI -troponin trended down -s/p cardiac cath, mild CAD nonobstructive Gram negative rachel bacteremia -wbc trending down -no clear source -continue rocephin -awaiting final culture results Renal insufficiency -creatinine trending down -continue IVF's NOEL -encouraged use of CPAP HTN -cardiology following and managing meds PAD -continue ASA DVT ppx lovenox GI ppx -protonix Clinical Quality Measures AMI/AHF: ASA po Prior to arrival: No CHAPARRITA WALKER DO 07/19/21 0521: Subjective Subjective/Events-last exam Pt doing a lot better Gram negative rods on blood culture, UA was only slightly abnormal so will follow up on that Rocephin maintained He is noncompliant with NOEL treatment and that would put him at risk for everything that he has right now Cardiac cath was normal Two daughters and at the bedside Will transfer to 4th floor Review of Systems General: Fatigue, Malaise Objective Exam General: Alert, Oriented X3, Cooperative, No Acute Distress Lungs: Clear to Auscultation, Normal Air Movement Heart: Regular Rate, Normal S1, Normal S2, No Murmurs Neuro: Normal Gait, Normal Speech, Strength at 5/5 X4 Ext, Normal Tone Psych/Mental Status: Mental Status NL, Mood NL Assessment/Plan Assessment/Plan Assess & Plan/Chief Complaint Syncope Chest pain NSTEMI with normal cath Sepsis- POA GNR bacteremia HTN PAD DVT ppx: Lovenox Noncompliant with CPAP Lower extremity edema Plan: Transfer to fourth floor Lasix for edema Monitor closely Supervisory-Addendum Brief Verification & Attestation Participated in pt care: history, MDM, physical Personally performed: exam, history, MDM, supervision of care Care discussed with: Medical Student Procedures: n/a Results interpretation: Verified all documentation Verification and Attestation of Medical Student E/M Service A medical student performed and documented this service in my presence. I reviewed and verified all information documented by the medical student and made modifications to such information, when appropriate. I personally performed the physical exam and medical decision making. Chaparrita Walker, Jul 19, 2021,05:15 SURESH PENA MED STUDENT Jul 18, 2021 10:41 CHAPARRITA WALKER DO Jul 19, 2021 05:21
[2021-07-18] MEDS: cefTRIAXone 1,000 MG in WATER (STERILE) FOR INJECTION 10 ML IV SCH (13:24)
[2021-07-19 04:58] LABS: BASOPHILS % (AUTO) 0 % (0-10); EOSINOPHILS # (AUTO) 0.1 10^3/uL (0.0-0.3); EOSINOPHILS % (AUTO) 1 % (0-10); HEMATOCRIT 46 % (40-54); LYMPHOCYTES # (AUTO) 0.9 10^3/uL (1.0-4.0); LYMPHOCYTES % (AUTO) 8 % (12-44); MEAN CORPUSCULAR HEMOGLOBIN 29 pg (25-34); MEAN CORPUSCULAR HGB CONC 35 g/dL (32-36); MEAN CORPUSCULAR VOLUME 85 fL (80-99); MEAN PLATELET VOLUME 10.4 fL (9.0-12.2); MONOCYTES # (AUTO) 0.7 10^3/uL (0.0-1.0); MONOCYTES % (AUTO) 6 % (0-12); NEUTROPHILS # (AUTO) 8.9 10^3/uL (1.8-7.8); NEUTROPHILS % (AUTO) 84 % (42-75); PLATELET COUNT 151 10^3/uL (130-400); WHITE BLOOD COUNT 10.6 10^3/uL (4.3-11.0)
[2021-07-19 05:09] LABS: ALBUMIN 3.4 GM/DL (3.2-4.5); POTASSIUM 3.3 MMOL/L (3.6-5.0)
[2021-07-19 05:12] LABS: TOTAL PROTEIN 6.5 GM/DL (6.4-8.2)
[2021-07-19 05:13] LABS: BILIRUBIN,TOTAL 1.5 MG/DL (0.1-1.0)
[2021-07-19 05:15] LABS: CREATININE SERUM 1.09 MG/DL (0.60-1.30)
[2021-07-19] MEDS ORDERED: KCL 20 MEQ TAB (K-DUR) PO ONE (07:00)
[2021-07-19] MEDS: DULoxetine 30 MG (CYMBALTA) CAP PO SCH (08:45)
[2021-07-19] MEDS: ASPIRIN E.C. 81 MG (ECOTRIN) TAB PO SCH (08:45)
[2021-07-19] MEDS: PANTOPRAZOLE 40 MG (PROTONIX) TAB PO SCH (08:45)
[2021-07-19] MEDS ORDERED: FURO-125 PO (10:26)
[2021-07-19] MEDS ORDERED: POTA10TA36 PO (10:26)
[2021-07-19] MEDS ORDERED: DULO30CA3 PO (10:26)
[2021-07-19] MEDS ORDERED: AMOX-358 PO (10:26)
--- NOTE | 2021-07-19 10:27 | Discharge Summary ---
Diagnosis/Chief Complaint Date of Admission Jul 16, 2021 at 20:00 Date of Discharge Discharge Date: Jul 19, 2021 Discharge Time: 1600 Discharge Diagnosis Syncope -maintain telemetry Chest pain -SL nitro PRN -continue to monitor NSTEMI -troponin trended down -s/p cardiac cath, mild CAD nonobstructive Gram negative rachel bacteremia -wbc trending down -no clear source -continue rocephin -awaiting final culture results Renal insufficiency -creatinine trending down -continue IVF's NOEL -encouraged use of CPAP HTN -cardiology following and managing meds PAD -continue ASA DVT ppx lovenox GI ppx -protonix Discharge Summary Discharge Physical Examination Allergies: Coded Allergies: No Known Drug Allergies (Unverified , 07/16/21) Vitals & I&Os Vital Signs Date Time Temp Pulse Resp B/P (MAP) Pulse Ox O2 Delivery O2 Flow Rate FiO2 07/19/21 11:00 95 Room Air 07/19/21 08:00 36.7 87 16 142/92 07/18/21 15:00 2.00 General Appearance: Alert, Oriented X3, Cooperative Respiratory: Clear to Auscultation Cardiovascular: Regular Rate Neuro: Normal Gait, Normal Speech, Strength at 5/5 X4 Ext Psych/Mental Status: Mental Status NL Hospital Course Was the Problem List Reviewed?: Yes Hospital Course: Pt had a lengthy hospital course for 4 days he was admitted for syncopal episodes with elevated Troponin. Cardiac catheterization performed without any intervention. Pt was monitored on telemetry, no cardiac arrhythmia events. NOEL untreated is likely the contributing factor. We did talk about that. Blood cultures were obtained, elevated WC showing one bottle with gram negative rachel of pseudomonas of uncertain source since urine culture was no growth to date so will place him on Levaquin and initiate medication recommended by cardiology and have close follow up with Dr. Zhou for a formal sleep study to prevent cardiac dysfunction risk. I did call Dr. Kenny Zhou and updated him on the entire hospital course. Labs (last 24 hrs) Laboratory Tests 07/16/21 18:00: White Blood Count 24.4H, Red Blood Count 5.62H, Hemoglobin 16.5, Hematocrit 49, Mean Corpuscular Volume 87, Mean Corpuscular Hemoglobin 29, Mean Corpuscular Hemoglobin Concent 34, Red Cell Distribution Width 14.1, Platelet Count 213, Mean Platelet Volume 10.0, Immature Granulocyte % (Auto) 2, Neutrophils (%) (Auto) 92H, Lymphocytes (%) (Auto) 3L, Monocytes (%) (Auto) 4, Eosinophils (%) (Auto) 0, Basophils (%) (Auto) 0, Neutrophils # (Auto) 22.5H, Lymphocytes # (Auto) 0.6L, Monocytes # (Auto) 0.9, Eosinophils # (Auto) 0.0, Basophils # (Auto) 0.1, Immature Granulocyte # (Auto) 0.4H, Neutrophils % (Manual) 96, Monocytes % (Manual) 4, Blood Morphology Comment NORMAL, Prothrombin Time 15.6H, INR Comment 1.2, Activated Partial Thromboplast Time 34, Sodium Level 133L, Potassium Level 4.2, Chloride Level 98, Carbon Dioxide Level 25, Anion Gap 10, Blood Urea Nitrogen 18, Creatinine 1.48H, Estimat Glomerular Filtration Rate 48, BUN/Creatinine Ratio 12, Glucose Level 111H, Calcium Level 9.1, Corrected Calcium 8.9, Magnesium Level 1.4L, Total Bilirubin 2.9H, Aspartate Amino Transf (AST/SGOT) 23, Alanine Aminotransferase (ALT/SGPT) 25, Alkaline Phosphatase 54, Myoglobin 208.6H, Troponin I 0.032H, Total Protein 6.9, Albumin 4.3, TSH [place] Testing 2.45, Influenza Type A (RT-PCR) Not Detected, Influenza Type B (RT-PCR) Not Detected, SARS-CoV-2 RNA (RT-PCR) Not Detected 07/16/21 19:55: Urine Color YELLOW, Urine Clarity CLEAR, Urine pH 8.0, Urine Specific [place] 1.015L, Urine Protein 2+H, Urine Glucose (UA) NEGATIVE, Urine Ketones 2+H, Urine Nitrite NEGATIVE, Urine Bilirubin 1+H, Urine Urobilinogen 2.0, Urine Leukocyte Esterase NEGATIVE, Urine RBC (Auto) TRACE-I, Urine RBC NONE, Urine WBC 5-10H, Urine Squamous Epithelial Cells 0-2, Urine Renal Epithelial Cells NONE, Urine Crystals NONE, Urine Bacteria NEGATIVE, Urine Casts NONE, Urine Mucus NEGATIVE, Urine Culture Indicated NO 07/16/21 20:12: Lactic Acid Level 1.21 07/16/21 23:30: Troponin I 0.038H 07/17/21 03:00: White Blood Count 20.2H, Red Blood Count 5.09, Hemoglobin 14.9, Hematocrit 45, Mean Corpuscular Volume 88, Mean Corpuscular Hemoglobin 29, Mean Corpuscular Hemoglobin Concent 33, Red Cell Distribution Width 14.2, Platelet Count 155, Mean Platelet Volume 9.9, Immature Granulocyte % (Auto) 4, Neutrophils (%) (Auto) 90H, Lymphocytes (%) (Auto) 2L, Monocytes (%) (Auto) 4, Eosinophils (%) (Auto) 0, Basophils (%) (Auto) 0, Neutrophils # (Auto) 18.2H, Lymphocytes # (Auto) 0.5L, Monocytes # (Auto) 0.8, Eosinophils # (Auto) 0.0, Basophils # (Auto) 0.1, Immature Granulocyte # (Auto) 0.8H, Sodium Level 133L, Potassium Level 3.7, Chloride Level 101, Carbon Dioxide Level 21, Anion Gap 11, Blood Urea Nitrogen 19H, Creatinine 1.35H, Estimat Glomerular Filtration Rate 54, BUN/Cr eatinine Ratio 14, Glucose Level 122H, Calcium Level 8.2L, Corrected Calcium 8.5, Total Bilirubin 2.6H, Aspartate Amino Transf (AST/SGOT) 22, Alanine Aminotransferase (ALT/SGPT) 21, Alkaline Phosphatase 45, Troponin I < 0.028, Total Protein 6.0L, Albumin 3.6, Triglycerides Level 55, Cholesterol Level 107, LDL Cholesterol Direct 49, VLDL Cholesterol 11, HDL Cholesterol 46 07/18/21 03:00: White Blood Count 15.7H, Red Blood Count 5.03, Hemoglobin 14.7, Hematocrit 44, Mean Corpuscular Volume 88, Mean Corpuscular Hemoglobin 29, Mean Corpuscular Hemoglobin Concent 33, Red Cell Distribution Width 14.3, Platelet Count 144, Mean Platelet Volume 10.1, Sodium Level 134L, Potassium Level 3.7, Chloride Level 104, Carbon Dioxide Level 21, Anion Gap 9, Blood Urea Nitrogen 15, Creatinine 1.02, Estimat Glomerular Filtration Rate 74, BUN/Creatinine Ratio 15, Glucose Level 108H, Calcium Level 8.6 07/19/21 04:45: White Blood Count 10.6, Red Blood Count 5.47, Hemoglobin 16.0, Hematocrit 46, Mean Corpuscular Volume 85, Mean Corpuscular Hemoglobin 29, Mean Corpuscular Hemoglobin Concent 35, Red Cell Distribution Width 13.9, Platelet Count 151, Mean Platelet Volume 10.4, Immature Granulocyte % (Auto) 1, Neutrophils (%) (Auto) 84H, Lymphocytes (%) (Auto) 8L, Monocytes (%) (Auto) 6, Eosinophils (%) (Auto) 1, Basophils (%) (Auto) 0, Neutrophils # (Auto) 8.9H, Lymphocytes # (Auto) 0.9L, Monocytes # (Auto) 0.7, Eosinophils # (Auto) 0.1, Basophils # (Auto) 0.0, Immature Granulocyte # (Auto) 0.1, Sodium Level 137, Potassium Level 3.3L, Chloride Level 102, Carbon Dioxide Level 24, Anion Gap 11, Blood Urea Nitrogen 18, Creatinine 1.09, Estimat Glomerular Filtration Rate 69, BUN/Creatinine Ratio 17, Glucose Level 101, Calcium Level 9.0, Corrected Calcium 9.5, Total Bilirubin 1.5H, Aspartate Amino Transf (AST/SGOT) 24, Alanine Aminotransferase (ALT/SGPT) 28, Alkaline Phosphatase 77, Total Protein 6.5, Albumin 3.4, Percent Immature Platelet Fraction 4.9 Microbiology 07/16/21 Blood Culture - Preliminary, Resulted No growth Pending Labs Microbiology Date/Time Source Procedure Growth Status 07/16/21 20:12 Peripheral Lt Hand Blood Culture - Preliminary No growth Resulted 07/16/21 18:00 Peripheral Rt Hand Blood Culture - Preliminary Pseudomonas species Resulted Laboratory Tests 07/16/21 18:00: White Blood Count 24.4, Red Blood Count 5.62, Hemoglobin 16.5, Hematocrit 49, Mean Corpuscular Volume 87, Mean Corpuscular Hemoglobin 29, Mean Corpuscular Hemoglobin Concent 34, Red Cell Distribution Width 14.1, Platelet Count 213, Mean Platelet Volume 10.0, Immature Granulocyte % (Auto) 2, Neutrophils (%) (Auto) 92, Lymphocytes (%) (Auto) 3, Monocytes (%) (Auto) 4, Eosinophils (%) (Auto) 0, Basophils (%) (Auto) 0, Neutrophils # (Auto) 22.5, Lymphocytes # (Auto) 0.6, Monocytes # (Auto) 0.9, Eosinophils # (Auto) 0.0, Basophils # (Auto) 0.1, Immature Granulocyte # (Auto) 0.4, Neutrophils % (Manual) 96, Monocytes % (Manual) 4, Blood Morphology Comment NORMAL, Prothrombin Time 15.6, INR Comment 1.2, Activated Partial Thromboplast Time 34, Sodium Level 133, Potassium Level 4.2, Chloride Level 98, Carbon Dioxide Level 25, Anion Gap 10, Blood Urea Nitrogen 18, Creatinine 1.48, Estimat Glomerular Filtration Rate 48, BUN/Creatinine Ratio 12, Glucose Level 111, Calcium Level 9.1, Corrected Calcium 8.9, Magnesium Level 1.4, Total Bilirubin 2.9, Aspartate Amino Transf (AST/SGOT) 23, Alanine Aminotransferase (ALT/SGPT) 25, Alkaline Phosphatase 54, Myoglobin 208.6, Troponin I 0.032, Total Protein 6.9, Albumin 4.3, TSH [place] Testing 2.45, Influenza Type A (RT-PCR) Not Detected, Influenza Type B (RT-PCR) Not Detected, SARS-CoV-2 RNA (RT-PCR) Not Detected 07/16/21 19:55: Urine Color YELLOW, Urine Clarity CLEAR, Urine pH 8.0, Urine Specific [place] 1.015, Urine Protein 2+, Urine Glucose (UA) NEGATIVE, Urine Ketones 2+, Urine Nitrite NEGATIVE, Urine Bilirubin 1+, Urine Urobilinogen 2.0, Urine Leukocyte Esterase NEGATIVE, Urine RBC (Auto) TRACE-I, Urine RBC NONE, Urine WBC 5-10, Urine Squamous Epithelial Cells 0-2, Urine Renal Epithelial Cells NONE, Urine Crystals NONE, Urine Bacteria NEGATIVE, Urine Casts NONE, Urine Mucus NEGATIVE, Urine Culture Indicated NO 07/16/21 20:12: Lactic Acid Level 1.21 07/16/21 23:30: Troponin I 0.038 07/17/21 03:00: White Blood Count 20.2, Red Blood Count 5.09, Hemoglobin 14.9, Hematocrit 45, Mean Corpuscular Volume 88, Mean Corpuscular Hemoglobin 29, Mean Corpuscular Hemoglobin Concent 33, Red Cell Distribution Width 14.2, Platelet Count 155, Mean Platelet Volume 9.9, Immature Granulocyte % (Auto) 4, Neutrophils (%) (Auto) 90, Lymphocytes (%) (Auto) 2, Monocytes (%) (Auto) 4, Eosinophils (%) (Auto) 0, Basophils (%) (Auto) 0, Neutrophils # (Auto) 18.2, Lymphocytes # (Auto) 0.5, Monocytes # (Auto) 0.8, Eosinophils # (Auto) 0.0, Basophils # (Auto) 0.1, Immature Granulocyte # (Auto) 0.8, Sodium Level 133, Potassium Level 3.7, Chloride Level 101, Carbon Dioxide Level 21, Anion Gap 11, Blood Urea Nitrogen 19, Creatinine 1.35, Estimat Glomerular Filtration Rate 54, BUN/Creatinine Ratio 14, Glucose Level 122, Calcium Level 8.2, Corrected Calcium 8.5, Total Bilirubin 2.6, Aspartate Amino Transf (AST/SGOT) 22, Alanine Aminotransferase (ALT/SGPT) 21, Alkaline Phosphatase 45, Troponin I < 0.028, Total Protein 6.0, Albumin 3.6, Triglycerides Level 55, Cholesterol Level 107, LDL Cholesterol Direct 49, VLDL Cholesterol 11, HDL Cholesterol 46 07/18/21 03:00: White Blood Count 15.7, Red Blood Count 5.03, Hemoglobin 14.7, Hematocrit 44, Mean Corpuscular Volume 88, Mean Corpuscular Hemoglobin 29, Mean Corpuscular Hemoglobin Concent 33, Red Cell Distribution Width 14.3, Platelet Count 144, Suri n Platelet Volume 10.1, Sodium Level 134, Potassium Level 3.7, Chloride Level 104, Carbon Dioxide Level 21, Anion Gap 9, Blood Urea Nitrogen 15, Creatinine 1.02, Estimat Glomerular Filtration Rate 74, BUN/Creatinine Ratio 15, Glucose Level 108, Calcium Level 8.6 07/19/21 04:45: White Blood Count 10.6, Red Blood Count 5.47, Hemoglobin 16.0, Hematocrit 46, Mean Corpuscular Volume 85, Mean Corpuscular Hemoglobin 29, Mean Corpuscular Hemoglobin Concent 35, Red Cell Distribution Width 13.9, Platelet Count 151, Mean Platelet Volume 10.4, Immature Granulocyte % (Auto) 1, Neutrophils (%) (Auto) 84, Lymphocytes (%) (Auto) 8, Monocytes (%) (Auto) 6, Eosinophils (%) (Auto) 1, Basophils (%) (Auto) 0, Neutrophils # (Auto) 8.9, Lymphocytes # (Auto) 0.9, Monocytes # (Auto) 0.7, Eosinophils # (Auto) 0.1, Basophils # (Auto) 0.0, Immature Granulocyte # (Auto) 0.1, Sodium Level 137, Potassium Level 3.3, Chloride Level 102, Carbon Dioxide Level 24, Anion Gap 11, Blood Urea Nitrogen 18, Creatinine 1.09, Estimat Glomerular Filtration Rate 69, BUN/Creatinine Ratio 17, Glucose Level 101, Calcium Level 9.0, Corrected Calcium 9.5, Total Bilirubin 1.5, Aspartate Amino Transf (AST/SGOT) 24, Alanine Aminotransferase (ALT/SGPT) 28, Alkaline Phosphatase 77, Total Protein 6.5, Albumin 3.4, Percent Immature Platelet Fraction 4.9 Discharge Home Medications: Active Scripts Active Levofloxacin 500 Mg Tablet 500 Mg PO DAILY 7 Days Potassium Chloride 10 Meq Tab.er.prt 10 Meq PO DAILY Lasix (Furosemide) 20 Mg Tablet 20 Mg PO DAILY Cymbalta (Duloxetine HCl) 30 Mg Capsule.dr 60 Mg PO DAILY Metoprolol Succinate 25 Mg Tab.er.24h 25 Mg PO DAILY Reported Testosterone Cypionate 200 Mg/1 Ml Vial 2 Ml IM EVERY 2 WEEKS Multivitamin 1 Each Tablet 1 Each PO DAILY Omeprazole 40 Mg Capsule.dr 40 Mg PO DAILY Tramadol HCl 50 Mg Tablet 50-100 Mg PO BID PRN Instructions to patient/family Please see electronic discharge instructions given to patient. Clinical Quality Measures AMI/AHF: ASA po Prior to arrival: CARISSA Dia DO Jul 19, 2021 10:27
[2021-07-19] MEDS ORDERED: LEVO500T80 PO (10:57)
[2021-07-19] MEDS: cefTRIAXone 1,000 MG in WATER (STERILE) FOR INJECTION 10 ML IV SCH (11:14)
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
--- NOTE | 2021-07-20 15:00 | Physician Query Clarification ---
PQ-Further Specificity Admission/Discharge Admission Date: Jul 16, 2021 at 20:00 Discharge Date: Jul 19, 2021 at 12:00 Dr. Falk, The medical record reflects the following clinical scenario: History/Risk Factors: hypertensive urgency, DC type 2, NOEL Clinical Findings: T37.6. P 120, R 20, Lactic acid 1.21, WBC 24.4 Treatment: IV Ceftriaxon, Levaquin Question: Can you further specify the gram negative pseudomonas in the blood culture per the clinical indicators above? Please document a response in the Progress Notes or Discharge Summary. 1. bacteremia d/t pseudomonas 2. Sepsis d/t pseudomonas 3. Other, with explanation of the clinical findings. 4. Clinically undetermined, no explanation for the clinical findings. PHYSICIAN RESPONSE Can you specify per above: 1 Please remember a lack of response to the above will prompt a phone page by [facility] staff. In responding to this query, please exercise your independent professional judgment. The purpose of this communication is to more accurately reflect the complexity of your patients condition. The fact that a question is asked does not imply that any particular answer is desired or expected. Thank you for your timely response to this clarification. Requestors name: Marisa THIS PHYSICIAN QUERY FORM IS A PERMANENT PART OF THE MEDICAL RECORD MARISA GARCIA Jul 20, 2021 15:00 CARISSA FALK DO Jul 20, 2021 16:55
== END 2021-07-19 12:00 | disposition home or self-care (01) | DRG 281 ==
LOC: EDUNIT# 17:18 → ER 17:20 → CSD 20:00 → EDPENDDISDT 07-19 16:00
PROVIDERS: ADMIT Family Medicine; ATTEND Internal Medicine
PROC: 4A023N7 Measurement of Cardiac Sampling and Pressure, Left Heart, Percutaneous Approach (ICD-10-PCS; principal; 2021-07-17)
PROC: B2111ZZ Fluoroscopy of Multiple Coronary Arteries using Low Osmolar Contrast (ICD-10-PCS; 2021-07-17)
DX: I16.0 Hypertensive urgency (principal); I21.A1 Myocardial infarction type 2; R78.81 Bacteremia; I10 Essential (primary) hypertension; Z20.822 Contact with and (suspected) exposure to COVID-19; R00.0 Tachycardia, unspecified; G47.33 Obstructive sleep apnea (adult) (pediatric); N28.9 Disorder of kidney and ureter, unspecified; E78.5 Hyperlipidemia, unspecified; I25.10 Atherosclerotic heart disease of native coronary artery without angina pectoris; F32.9 Major depressive disorder, single episode, unspecified; I73.9 Peripheral vascular disease, unspecified; B96.5 Pseudomonas (aeruginosa) (mallei) (pseudomallei) as the cause of diseases classified elsewhere
CPT/HCPCS: 36415; 71045; 71275; 80048; 80053; 80061; 81000; 83605; 83735; 83874; 84443; 84484; 85007; 85025; 85027; 85610; 85730; 87040; 87186; 87636; 93005; 93041; 93306; 93458; 96372; 96374